=== PATIENT | female | born 1995 | race Asian ===

== ENCOUNTER 2022-02-13 11:58 | Emergency (ER) | payer OTHER ==
[2022-02-13 12:05] VITALS: BP 130/75
[2022-02-13] MEDS ORDERED: SODIUM CHLORIDE 0.9% 1,000 ML IV STA (12:14)
[2022-02-13] MEDS ORDERED: ONDANSETRON 4 MG/2 ML VIAL IVP STA (12:14)
--- NOTE | 2022-02-13 12:17 | ED Physician Documentation ---
History of Present Illness - Stated complaint Stated Complaint: N/V 13WKS PREG - Chief complaint Chief Complaint: Abd Pain - History obtained from History obtained from: Patient - History of Present Illness Timing: Yesterday Pain level max: 0 Pain level now: 0 - Additonal information Additional information: 18-year-old female states she is about 13 weeks . Started having nausea and vomiting yesterday. Has continued today. 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 She has not taken anything for the nausea or vomiting. Worse with eating and drinking, nothing makes it better. No vaginal bleeding or discharge. No abdominal pain. No pelvic pain or cramping. Review of Systems Ten Systems: 10 systems reviewed and negative Constitutional: denies: Fever, Chills Ears: denies: Ear pain Nose: denies: Rhinorrhea / runny nose, Congestion Throat: denies: Sore throat Cardiac: denies: Chest pain / pressure Respiratory: denies: Cough GI: reports: Nausea. denies: Abdominal Pain, Diarrhea, Hematemesis, Bloody / black stool : denies: Dysuria, Frequency, Hesitancy Skin: denies: Rash Musculoskeletal: denies: Neck pain, Back pain Neurologic: denies: Headache PD PAST MEDICAL HISTORY - Past Medical History Past Medical History: No - Past Surgical History Past Surgical History: No - Present Medications Home Medications: Ambulatory Orders Medication Instructions Recorded Confirmed Ondansetron Odt [Zofran] 4 mg TL Q6H PRN #10 tablet 02/13/22 - Allergies Allergies/Adverse Reactions: Allergies Allergy/AdvReac Type Severity Reaction Status Date / Time No Known Drug Allergies Allergy Verified 02/13/22 12:02 - Living Situation Living Situation: reports: With family Living Arrangement: reports: At home - Social History Does the pt smoke?: No Does the pt have substance abuse?: No - Family History Family history: reports: Non contributory PD ED PE NORMAL - Vitals Vital signs reviewed: Yes - General General: Alert and oriented X 3, No acute distress - HEENT HEENT: PERRL, Moist mucous membranes - Neck Neck: Supple, no meningeal sign - Cardiac Cardiac: RRR, Strong equal pulses - Respiratory Respiratory: No respiratory distress, Clear bilaterally - Abdomen Abdomen: Soft, Non tender, Non distended - Derm Derm: Warm and dry - Extremities Extremities: No edema - Neuro Neuro: Alert and oriented X 3 - Psych Psych: Normal mood, Normal affect Results - Vitals Vitals: Vital Signs - 24 hr 02/13/22 12:02 Temperature 36.5 C Heart Rate 99 Respiratory 16 Rate Blood Pressure 130/75 O2 Saturation 99 Oxygen O2 Source Room air - Labs Labs: Laboratory Tests 02/13/22 02/13/22 02/13/22 12:15 12:30 12:30 WBC 15.2 H RBC 4.68 Hgb 13.8 Hct 40.9 MCV 87.4 MCH 29.5 MCHC 33.7 RDW 13.2 Plt Count 259 MPV 11.6 H Neut # (Auto) 12.3 H Lymph # (Auto) 1.7 [place] # (Auto) 1.0 Eos # (Auto) 0.1 Baso # (Auto) 0.1 Absolute Nucleated RBC 0.00 Nucleated RBC % 0.0 Sodium 136 Potassium 3.7 Chloride 101 Carbon Dioxide 22 Anion Gap 13.0 BUN 6 Creatinine 0.5 Estimated GFR (MDRD) 147 Glucose 97 Calcium 9.7 Total Bilirubin 0.9 AST 51 H ALT 61 H Alkaline Phosphatase 55 Total Protein 7.6 Albumin 4.1 Globulin 3.5 Albumin/Globulin Ratio 1.2 Lipase 34 Urine Color YELLOW Urine Clarity HAZY Urine pH 7.0 Ur Specific [place] 1.015 Urine Protein NEGATIVE Urine Glucose (UA) NEGATIVE Urine Ketones 15 H Urine Occult Blood NEGATIVE Urine Nitrite NEGATIVE Urine Bilirubin NEGATIVE Urine Urobilinogen 0.2 (NORMAL) Ur Leukocyte Esterase TRACE H Urine RBC 0-5 Urine WBC 6-10 H Ur Squamous Epith Cells MANY Squamous H Urine Bacteria Moderate H Ur Microscopic Review INDICATED Urine Culture Comments NOT INDICATED PD MEDICAL DECISION MAKING - ED course Complexity details: reviewed results, re-evaluated patient, considered differential, d/w patient ED course: Patient feels much better after IV fluids and Zofran. Tolerating p.o. without difficulty. Urinalysis appears contaminated. Will prescribe Zofran for home. We will have her follow-up with her OB for further care. Patient is well-appearing, nontoxic. Afebrile. Patient counseled regarding signs and symptoms for which I believe and urgent re-evaluation would be necessary. Patient with good understanding of and agreement to plan and is comfortable going home at this time This document was made in part using voice recognition software. While efforts are made to proofread this document, sound alike and grammatical errors may occur. Departure - Departure Disposition: 01 Home, Self Care Clinical Impression: Vomiting Qualifiers: Vomiting type: unspecified Nausea presence: with nausea Qualified Code(s): R11.2 - Nausea with vomiting, unspecified Qualifiers: Weeks of gestation: 13 weeks Qualified Code(s): Z3A.13 - 13 weeks gestation of Condition: Good Instructions: ED Preg Morning Sickness Follow-Up: RENE AMEZCUA MD [Primary Care Provider] - Prescriptions: Ondansetron Odt [Zofran] 4 mg TL Q6H PRN #10 tablet PRN Reason: Nausea / Vomiting Comments: Please follow-up with your OB for further care. Your prescriptions were sent to [facility] in [place]. Drink plenty of fluids and rest. Return if you worsen
[2022-02-13 12:37] LABS: BASOPHILS # (AUTO) 0.1 10^3/uL (0.0-0.1); BASOPHILS % (AUTO) 0.4 %; EOSINOPHILS # (AUTO) 0.1 10^3/uL (0.0-0.7); EOSINOPHILS % (AUTO) 0.6 %; HCT - HEMATOCRIT 40.9 % (37.0-47.0); HGB - HEMOGLOBIN 13.8 g/dL (12.0-16.0); LYMPHOCYTES # (AUTO) 1.7 10^3/uL (1.5-3.5); MEAN CORPUSCULAR HEMOGLOBIN 29.5 pg (27.0-31.0); MEAN CORPUSCULAR HGB CONC 33.7 g/dL (32.0-36.0); MEAN CORPUSCULAR VOLUME 87.4 fL (81.0-99.0); MEAN PLATELET VOLUME 11.6 fL (7.9-10.8); MONOCYTES % (AUTO) 6.4 %; NEUTROPHILS # (AUTO) 12.3 10^3/uL (1.5-6.6); NEUTROPHILS % (AUTO) 81.1 %; PLT - PLATELET COUNT 259 10^3/uL (130-450); RED BLOOD COUNT 4.68 10^6/uL (4.20-5.40); RED CELL DISTRIBUTION WIDTH 13.2 % (12.0-15.0); WHITE BLOOD COUNT 15.2 x10^3/uL (4.8-10.8)
[2022-02-13 12:41] LABS: BILIRUBIN,URINE NEGATIVE (NEGATIVE); GLUCOSE, URINE (UA) NEGATIVE (NEGATIVE); KETONES,URINE (UA) 15 mg/dL (NEGATIVE); LEUKOCYTE ESTERASE, URINE TRACE (NEGATIVE); NITRITE,URINE NEGATIVE (NEGATIVE); OCCULT BLOOD,URINE NEGATIVE (NEGATIVE); PROTEIN,URINE NEGATIVE (NEGATIVE); UROBILINOGEN,URINE 0.2 (NORMAL) E.U./dL (NORMAL)
[2022-02-13 12:54] LABS: CLARITY,URINE HAZY (CLEAR)
[2022-02-13 12:55] LABS: BACTERIA,URINE Moderate /HPF (None Seen); RBC,URINE 0-5 /HPF (0-5); SQUAMOUS EPITHELIAL CELL,UR MANY Squamous (<= Few)
[2022-02-13 13:12] LABS: ALBUMIN 4.1 g/dL (3.2-5.5); ALBUMIN/GLOBULIN RATIO 1.2 (1.0-2.2); BILIRUBIN,TOTAL 0.9 mg/dL (0.2-1.0); CREATININE 0.5 mg/dL (0.4-1.0); TOTAL PROTEIN 7.6 g/dL (6.7-8.2)
[2022-02-13 13:18] LABS: CALCIUM 9.7 mg/dL (8.5-10.3); POTASSIUM 3.7 mmol/L (3.5-5.0)
== END 2022-02-13 13:46 | disposition home or self-care (01) ==
LOC: ED 11:58
DX: O21.0 Mild hyperemesis gravidarum (principal); Z3A.13 13 weeks gestation of pregnancy
CPT/HCPCS: 36415; 80053; 81001; 81003; 83690; 85025; 87086; 96361; 96374; 99282

== ENCOUNTER 2022-05-06 04:03 | Outpatient (CLI) | payer OTHER ==
[2022-05-06 04:37] VITALS: BP 134/60
[2022-05-06 06:00] LABS: RUPTURE OF MEMBRANES PLUS POSITIVE (NEGATIVE)
[2022-05-06] MEDS: BETAMETHASONE 30 MG/5 ML VIAL IM ONE (06:10)
[2022-05-06] MEDS: MAGNESIUM SULFATE 4 GRAM 4 GM/50 ML BAG IV ONE (06:20)
[2022-05-06] MEDS ORDERED: MAGNESIUM SULFATE IN WATER 20 GM/500 ML IV.SOLN IV ONE (06:31)
[2022-05-06] MEDS ORDERED: LACTATED RINGERS 1,000 ML ONE (06:36)
[2022-05-06] MEDS: AMPICILLIN 2 GM in SODIUM CHLORIDE 0.9% MINIBAG 100 ML IV SCH (06:54)
[2022-05-06] MEDS: MAGNESIUM SULFATE IN WATER 20 GM/500 ML IV.SOLN IV SCH (06:58)
[2022-05-06 07:12] LABS: BASOPHILS % (AUTO) 0.6 %; EOSINOPHILS % (AUTO) 0.9 %; HCT - HEMATOCRIT 37.7 % (37.0-47.0); HGB - HEMOGLOBIN 12.4 g/dL (12.0-16.0); LYMPHOCYTES % (AUTO) 7.8 %; MEAN CORPUSCULAR HEMOGLOBIN 29.7 pg (27.0-31.0); MEAN CORPUSCULAR HGB CONC 32.9 g/dL (32.0-36.0); MEAN CORPUSCULAR VOLUME 90.2 fL (81.0-99.0); MEAN PLATELET VOLUME 11.1 fL (7.9-10.8); MONOCYTES % (AUTO) 7.2 %; NEUTROPHILS % (AUTO) 79.6 %; PLT - PLATELET COUNT 255 10^3/uL (130-450); RED BLOOD COUNT 4.18 10^6/uL (4.20-5.40); RED CELL DISTRIBUTION WIDTH 12.9 % (12.0-15.0); WHITE BLOOD COUNT 25.6 x10^3/uL (4.8-10.8)
[2022-05-06 07:14] LABS: SLIDE REVIEW? Indicated
[2022-05-06 07:15] LABS: ABNORMAL LYMPHS % (MANUAL) 0 %
--- NOTE | 2022-05-06 07:15 | HISTORY & PHYSICAL EXAMINATION ---
Admit History - Visit Reason Visit Reason: Contractions, Membranes rupture - : 1 Parity: 0 Care: positive: [facility] Risk/History: positive: Premature rupture membrane Complications This : positive: None Smoking Status: Never smoker - Mother's Labs Mother's Blood Type: positive: Unknown (pending) Mother's RH: positive: Unknown GBS: positive: Other (unknown) Rubella Status: positive: Immune Meds/Allgy - Home Medications Home Medications: Ambulatory Orders Medication Instructions Recorded Confirmed Ondansetron Odt [Zofran] 4 mg TL Q6H PRN #10 tablet 02/13/22 - Allergies Allergies/Adverse Reactions: Allergies Allergy/AdvReac Type Severity Reaction Status Date / Time No Known Drug Allergies Allergy Verified 02/13/22 12:02 Review of Systems - All Other Systems All Other Systems: reports: Reviewed and negative Physical - Abdominal Exam Vital Signs: Temp Pulse Resp BP Pulse Ox 99.3 F 91 16 134/60 H 05/06/22 04:32 05/06/22 04:32 05/06/22 04:32 05/06/22 04:32 Contraction Frequency (min/apart): per patient 10-15m, not detected on toco Contraction Intensity: positive: Mild Uterine Resting Tone: positive: Soft - Monitoring Heart Rate Baseline: 140 Strip Review: positive: Category I - Presentation Presentation: positive: Transverse - Vaginal Exam Membranes: positive: Membranes ruptured (ROMPlus POS, POS pooling) Dilation (in cm): 1 Effacement (%): 50 Station: positive: -3 Cervical Position: positive: Midposition - Speculum Exam Speculum Exam Performed: positive: Yes Findings: positive: Gross leak (pooling, no active bleeding noted, no clots) Plan for Labor - Plan For Labor I expect patient to be DC'd or transferred within 96 hours.: Yes Plan for Labor: 26yo at 24.3w by LMP presented to [facility] today 05/06 with concern of bleeding and cramping. Also reports some discharge. Reports less movement. She reports she was evaluated at [facility] in [place] 4d prior on 05/02 with similar concerns. PPROM diagnosed this e valuation, likely occured on 05/02. care at [facility] and she reports her has been uncomplicated. NKDA Meds: vitamins Med: Anxiety, history of chlamydia, depression, endometriosis, GERD Surg: [place] teeth Social: Active duty [place], presents with her boyfriend/FOB, denies AROLDO Fam: Mother with HTN VSS GEN: NAD CV: Regular rate Resp: Breathing unlabored Abd: soft, nt Ext: nt Speculum: [place] pooling noted, small portion of cervix visualized and appears at least 1cm dilated SVE: /-3 Limited US: minimal fluid noted, oblique/transverse presentation 26yo at 24.3w diagnosed with PPROM today, which occured on 05/02 - [place] #1 given 05/06 0610 - Received magnesium sulfate 4g bolus, now 2g/h - Received ampicillin - Vanessa Cortes MD accepting patient. Arranged for [facility] transfer. - Obtained records from [facility] where was cared for prenatally
[2022-05-06 07:26] LABS: ALBUMIN 3.6 g/dL (3.2-5.5); ALKALINE PHOSPHATASE 110 IU/L (42-121); ALT ALANINE AMINOTRANSFERASE 11 IU/L (10-60); AST ASPARTATE AMINOTRANSFERASE 15 IU/L (10-42); BILIRUBIN,TOTAL < 0.2 mg/dL (0.2-1.0); BUN - BLOOD UREA NITROGEN 6 mg/dL (6-20); CALCIUM 8.9 mg/dL (8.5-10.3); CARBON DIOXIDE - CO2 24 mmol/L (21-32); CHLORIDE 104 mmol/L (101-111); CREATININE 0.5 mg/dL (0.4-1.0); GFR - MDRD 147 (>89); GLUCOSE 94 mg/dL (70-100); POTASSIUM 4.1 mmol/L (3.5-5.0); SODIUM 139 mmol/L (135-145); TOTAL PROTEIN 7.2 g/dL (6.7-8.2)
[2022-05-06 07:40] LABS: BAND NEUTROPHILS % (MANUAL) 6 %; EOSINOPHILS # (MANUAL) 0.5 10^3/uL (0-0.7); LYMPHOCYTES # (MANUAL) 2.3 10^3/uL (1.5-3.5); LYMPHOCYTES % (MANUAL) 7 %; MONOCYTES # (MANUAL) 2.3 10^3/uL (0.0-1.0); NEUTROPHILS # (MANUAL) 20.5 10^3/uL (1.5-6.6); REACTIVE LYMPHS % (MANUAL) 2 %
[2022-05-06 07:41] LABS: DIFFERENTIAL COMMENT MANUAL DIFFERENTIAL
== END 2022-05-06 07:50 | disposition short-term general hospital (02) ==
LOC: WFO 04:03 → FBP 04:03 → WFO 04:07 → FBP 04:07 → WFO 07:50
PROVIDERS: ATTEND Obstetrics & Gynecology
DX: O42.912 Preterm premature rupture of membranes, unspecified as to length of time between rupture and onset of labor, second trimester (principal); Z3A.24 24 weeks gestation of pregnancy
CPT/HCPCS: 36415; 80053; 82731; 84112; 85025; 86850; 86900; 86901; 87635; 87797; 96372; 96374; 96376; 99215; J7120; J3475

== ENCOUNTER 2022-12-16 09:08 | Emergency (ER) | payer OTHER ==
[2022-12-16] MEDS ORDERED: ACETAMINOPHEN 325 MG TABLET PO STA (09:46)
[2022-12-16 10:03] LABS: RAPID STREP SCREEN Negative (Negative)
--- NOTE | 2022-12-16 10:22 | XRAY Report ---
PROCEDURE: Chest 1 View X-Ray INDICATIONS: cough/SOA TECHNIQUE: One view of the chest was acquired. COMPARISON: None. FINDINGS: Surgical changes and devices: None. Lungs and pleura: No pleural effusions or pneumothorax. Minimal left basilar atelectasis. Mediastinum: Mediastinal contours appear normal. Heart size is normal. Bones and chest wall: No suspicious bony lesions. Overlying soft tissues appear unremarkable. IMPRESSION: Minimal left basilar atelectasis. Reviewed by: Henry Esparza MD on 12/16/2022 10:21 AM [facility] Approved by: Henry Esparza MD on 12/16/2022 10:21 AM [facility] Station ID: [id number]
--- NOTE | 2022-12-16 10:28 | ED Physician Documentation ---
PD HPI URI - Stated complaint Stated Complaint: BODY PX/CONGESTION/FEVER - Chief complaint Chief Complaint: Fever - History obtained from History obtained from: Patient - Additional information Additional information: Patient is a 27-year-old female with no significant past medical history presenting for evaluation of 4 days of fever, productive cough of yellow sputum, nasal congestion, headache, body aches. She denies chest pain or difficulty breathing. She denies hemoptysis. She took a home COVID test which was negative last night. Her younger child who goes to daycare is also been ill with similar symptoms recently.She has been using antipyretics with the last dose being last night. She is tolerating p.o. with no vomiting or diarrhea and no abdominal pain or dysuria. Review of Systems Constitutional: reports: Fever Nose: reports: Congestion Throat: reports: Sore throat Respiratory: reports: Cough GI: denies: Abdominal Pain, Vomiting Musculoskeletal: denies: Back pain PD PAST MEDICAL HISTORY - Past Surgical History Past Surgical History: No - Present Medications Home Medications: Ambulatory Orders Medication Instructions Recorded Confirmed No Known Home Medications 12/16/22 12/16/22 - Allergies Allergies/Adverse Reactions: Allergies Allergy/AdvReac Type Severity Reaction Status Date / Time No Known Drug Allergies Allergy Verified 12/16/22 09:24 - Social History Does the pt smoke?: No Smoking Status: Never smoker Does the pt have substance abuse?: No PD ED PE NORMAL - General General: Alert and oriented X 3, No acute distress, Well developed/nourished - HEENT HEENT: Atraumatic, Moist mucous membranes, Pharynx benign (No oral swelling, ex udate or erythema) - Neck Neck: Supple, no meningeal sign - Cardiac Cardiac: RRR - Respiratory Respiratory: No respiratory distress, Clear bilaterally - Abdomen Abdomen: Soft, Non tender, Non distended - Derm Derm: Warm and dry - Neuro Neuro: Normal speech Results - Vitals Vitals: Vital Signs - 24 hr 12/16/22 12/16/22 09:24 10:34 Temperature 36.4 C L Heart Rate 120 H 89 Respiratory 18 16 Rate Blood Pressure 155/83 H 110/79 O2 Saturation 99 99 Oxygen O2 Source Room air - Labs Labs: Laboratory Tests 12/16/22 12/16/22 09:30 09:30 Nasal Adenovirus (PCR) NOT DETECTED Nasal B. parapertussis DNA (PCR) NOT DETECTED Nasal Coronavir 229E PCR NOT DETECTED Nasal Coronavir HKU1 PCR NOT DETECTED Nasal Coronavir NL63 PCR NOT DETECTED Nasal Coronavir OC43 PCR NOT DETECTED Nasal Enterovir/Rhinovir PCR DETECTED A Nasal Influenza B PCR NOT DETECTED Nasal Influenza A PCR NOT DETECTED Nasal Parainfluen 1 PCR NOT DETECTED Nasal Parainfluen 2 PCR NOT DETECTED Nasal Parainfluen 3 PCR NOT DETECTED Nasal Parainfluen 4 PCR NOT DETECTED Nasal RSV (PCR) NOT DETECTED Nasal B.pertussis DNA PCR NOT DETECTED Nasal C.pneumoniae (PCR) NOT DETECTED [place] Human Metapneumo PCR NOT DETECTED Nasal M.pneumoniae (PCR) NOT DETECTED Nasal SARS-CoV-2 (PCR) NOT DETECTED Group A Strep Rapid Negative PD Medical Decision Making - ED course Complexity details: reviewed results, re-evaluated patient, d/w patient ED course: Patient with URI symptoms for 4 days including fever and productive cough. She is slightly tachycardic from initial triage vitals but that was improved when I evaluated her in the room. Her lung sounds are clear. She has no chest pain or difficulty breathing. She has no signs of peritonsillar abscess. A strep test is negative and a respiratory panel is pending. Patient is tolerating p.o. I did review her chest x-ray and see no evidence of pneumonia. Patient is counseled that her symptoms are likely viral in nature and to continue with supportive care. She is counseled on concerning symptoms to return for. Departure - Departure Disposition: 01 Home, Self Care Clinical Impression: URI with cough and congestion Condition: Stable Instructions: ED URI Viral Comments: Your respiratory panel is pending. This will check for COVID, influenza, RSV and a number of other common cold viruses. We will notify you if it is positive for COVID. Otherwise you can check the patient portal for your results. You should quarantine from others until you know your COVID result. Please continue with acetaminophen or ibuprofen as needed for fevers and body aches, plenty of fluids/hydration and rest. Return to the ER with any worsening symptoms such as difficulty breathing or vomiting. Your strep test is negative. We will send this for culture. We will notify you if it is abnormal and discuss antibiotics with you at that time.Your chest x-ray is also clear and does not show signs of pneumonia. Forms: Activity restrictions Discharge Date/Time: 12/16/22 10:35
[2022-12-16 10:35] VITALS: BP 110/79
[2022-12-16 10:41] LABS: B. PARAPERTUSSIS- RESP PCR PAN NOT DETECTED; B. PERTUSSIS- RESP PCR PANEL NOT DETECTED; C. PNEUMONIAE- RESP PCR PANEL NOT DETECTED; CORONAVIRUS 229E-RESP PCR NOT DETECTED; CORONAVIRUS HKU1-RESP PCR NOT DETECTED; CORONAVIRUS NL63-RESP PCR NOT DETECTED; CORONAVIRUS OC43-RESP PCR NOT DETECTED; HUMAN METAPNEUMOVIRUS NOT DETECTED; INFLUENZA A- RESP PCR PANEL NOT DETECTED; INFLUENZA B - RESP PCR PANEL NOT DETECTED; M. PNEUMONIAE- RESP PCR PANEL NOT DETECTED; PARAINFLUENZA VIRUS 1 NOT DETECTED; PARAINFLUENZA VIRUS 2 NOT DETECTED; PARAINFLUENZA VIRUS 3 NOT DETECTED; PARAINFLUENZA VIRUS 4 NOT DETECTED; RHINOVIRUS/ENTEROVIRUS DETECTED; RSV- RESP PCR PANEL NOT DETECTED; SARS-CoV-2 -RESP PCR PANEL NOT DETECTED
== END 2022-12-16 10:35 | disposition home or self-care (01) ==
LOC: ED 09:08
DX: J06.9 Acute upper respiratory infection, unspecified (principal); R05.9 Cough, unspecified; R09.81 Nasal congestion; Z20.822 Contact with and (suspected) exposure to COVID-19
CPT/HCPCS: 71045; 87070; 87430; 87633; 99283; 99284; A9270

== ENCOUNTER 2023-03-29 07:50 | Day surgery (SDC) | payer OTHER ==
[2023-03-29 08:03] LABS: HCG UR QUAL NEGATIVE
[2023-03-29] MEDS ORDERED: LACTATED RINGERS 1,000 ML IV ONE (08:22)
[2023-03-29] MEDS ORDERED: SILVER NITRATE APPLICATOR TOP ONE (08:37)
--- NOTE | 2023-03-29 09:02 | ANESTHESIA ---
Pre-Anesthesia VS, & Labs - Diagnosis abnormal uterine bleeding endometrial polyp - Procedure hysterscopy, D&C Vital Signs: Temp Pulse Resp BP Pulse Ox O2 Flow Rate 36.3 C L 71 16 120/69 99 03/29/23 08:05 03/29/23 08:05 03/29/23 08:05 03/29/23 08:05 03/29/23 08:05 Height: 5 ft 3 in Weight (kg): 71.8 kg Body Mass Index: 28.0 BMI Classification: Overweight - NPO >8 hours - Is Patient ?: No Home Medications and Allergies Home Medications: Ambulatory Orders Clobetasol 0.05% Oint [Temovate 0.05% Oint] 1 applic TOP PRN PRN 03/25/23 Halobetasol Propionate 1 applic TP PRN PRN 03/25/23 Omeprazole 40 mg PO DAILY 03/25/23 Clobetasol 0.05% Oint [Temovate 0.05% Oint] 1 applic TOP PRN PRN 03/25/23 Halobetasol Propionate 1 applic TP PRN PRN 03/25/23 Omeprazole 40 mg PO DAILY 03/25/23 Allergies/Adverse Reactions: Allergies Allergy/AdvReac Type Severity Reaction Status Date / Time No Known Drug Allergies Allergy Verified 12/16/22 09:24 Anes History & Medical History - Anesthetic History Anesthesia Complications: reports: No previous complications - Medical History Cardiovascular: reports: None Pulmonary: reports: None Gastrointestinal: reports: GERD Urinary: reports: None Neuro: reports: None Musculoskeletal: reports: None Endocrine/Autoimmune: reports: None Skin: reports: Eczema Smoking Status: Never smoker Psychosocial: reports: No issues indicated History of Cancer?: No - Surgical History Gynecologic: reports: section Exam General: Alert, Oriented x3, Cooperative, No acute distress Dental: WNL Mouth Openin Fingerbreadth Neck Mobility: Normal Mallampati classification: II Thyromental Distance: 4-6 cm Mental/Cognitive Status: Alert/Oriented X3, Normal for patient Plan Anesthesia Type: General Consent for Procedure(s) Verified and Reviewed: Yes Code Status: Attempt Resuscitation ASA classification: 2-Mild systemic disease Is this case an emergency?: No
[2023-03-29] MEDS ORDERED: PROPOFOL 200 MG/20 ML VIAL IVP ONE (09:12)
[2023-03-29] MEDS ORDERED: fentaNYL 100 MCG/2 ML VIAL ONE (09:13)
[2023-03-29] MEDS ORDERED: MIDAZOLAM 2 MG/2 ML VIAL ONE (09:13)
[2023-03-29] MEDS ORDERED: DEXAMETHASONE 4 MG/ML VIAL ONE (09:39)
[2023-03-29] MEDS ORDERED: ONDANSETRON 4 MG/2 ML VIAL ONE (09:39)
[2023-03-29] MEDS ORDERED: KETOROLAC 30 MG/ML VIAL ONE (09:39)
[2023-03-29] MEDS ORDERED: LACTATED RINGERS 100 ML IV ONE (10:12)
--- NOTE | 2023-03-29 10:19 | OPERATIVE REPORT ---
Operative Report - General Procedure Date: 03/29/23 Planned Procedure: Dilation, curettage, hysteroscopy Pre-Op Diagnosis: Heavy menstrual bleeding, endometrial polyp Procedure Performed: Dilation, curettage, hysteroscopy Post Op Diagnosis: Normal endometrium - Procedure Note Primary Surgeon: Mariah Devi DO Secondary Surgeon: Vandana Santiago NP and Kwame Vance MS3 present for learning/education Anesthesia Provider: Kate Alejandre CRNA Anesthesia Technique: General LMA Pathology: Endometrial curettings Estimated Blood Loss (mL): 20 Urine Output (mL): 150 Indications: Heavy menstrual bleeding, endometrial polyp Findings: Normal endometrium, no polyp identified Complications: None - Other Other Information/Narrative: Patient transported to OR where general LMA anesthesia obtained. Placed in dorsal lithotomy position with mireille type stirrups. Prepped and draped in sterile fashion. Bladder emptied. Speculum placed. Posterior lip of cervix grasped with tenaculum. Dilated to accomodate Myosure hysteroscope. Hysteroscope introduced. [place] visualized. No polyp noted. Hysteroscope removed. Curette introduced and adequate endometrial curettings obtained. Tenaculum removed. Hemostasis. Counts correct x2. Transferred to PACU in stable condition.
[2023-03-29] MEDS ORDERED: traMADol 50 MG TABLET PO PRN (10:20)
[2023-03-29] MEDS ORDERED: fentaNYL 100 MCG/2 ML VIAL IVP PRN (10:28)
[2023-03-29] MEDS ORDERED: ATROPINE ABBOJECT 1 MG/10 ML SYRINGE IVP PRN (10:28)
[2023-03-29] MEDS ORDERED: HYDROmorphone 0.5 MG/0.5 ML SYRINGE IVP PRN (10:28)
[2023-03-29] MEDS ORDERED: MORPHINE 2 MG/ML CARPUJECT IVP PRN (10:28)
[2023-03-29] MEDS ORDERED: ONDANSETRON 4 MG/2 ML VIAL IVP PRN (10:28)
[2023-03-29] MEDS ORDERED: NALOXONE 0.4 MG/ML VIAL IVP PRN (10:28)
[2023-03-29] MEDS ORDERED: LACTATED RINGERS 500 ML IV ONE (10:45)
[2023-03-29 11:00] VITALS: BP 113/75
[2023-03-29] MEDS ORDERED: LACTATED RINGERS 1,000 ML IV SCH (11:00)
--- NOTE | 2023-03-29 16:10 | ANESTHESIA POST OP EVALUATION ---
Anesthesia Post Eval - Post Anesthesia Eval Vitals: Last Vital Signs Temp 36.8 C 03/29/23 10:58 Pulse 74 03/29/23 10:58 Resp 16 03/29/23 10:58 BP 113/75 03/29/23 10:58 Pulse Ox 99 03/29/23 10:58 O2 Flow Rate CV Function Including HR & BP: Stable Pain Control: Satisfactory Nausea & Vomiting: Negative Mental Status: Baseline Respiratory Status: Airway Patent Hydration Status: Satisfactory Anesthesia Complications: None
== END 2023-03-29 07:51 | disposition home or self-care (01) ==
LOC: SDS 07:50
PROVIDERS: ATTEND Obstetrics & Gynecology
PROC: 0UDB7ZZ Extraction of Endometrium, Via Natural or Artificial Opening (ICD-10-PCS; principal; 2023-03-29 09:00)
DX: N93.9 Abnormal uterine and vaginal bleeding, unspecified (principal)
CPT/HCPCS: 58558; 81025; J7120

== ENCOUNTER 2023-09-16 10:41 | Outpatient (CLI) | payer OTHER ==
--- NOTE | 2023-09-16 11:49 | Sleep Patient Instructions ---
Sleep Center Visit Summary - Patient Visit Information Reason for Visit: Initial consult for evaluation of sleep disordered breathing and other sleep issues. - Patient Instructions Instructions Attached: Sleep Study Home Monitor Additional Instructions: You will be completing a sleep study, either an in-lab polysomnography (PSG) or home sleep study (HST). You will follow-up in the sleep care office after the sleep study is completed to hear the results and talk about therapy, if needed. You will be called by our office staff to schedule this appointment, but you may contact us with any questions. - Clinic Information Contact: [facility] [address] [place] [address] [email or web address] T: [phone]
--- NOTE | 2023-09-16 11:52 | SLEEP CARE CONSULTATION ---
Information from patient questionnaire entered by Lana Champagne. I have reviewed and concur with the information entered by Lana Champagne. This document represents the service I personally performed and the decisions made by me, Yamilex Torres ARNP. History of Present Illness Service Date and Time: 09/16/2023 1041 Reason for Visit: New patient Chief Complaint: reports: Insomnia, Snoring, Excessive daytime sleepiness, Fatigue, Frequent awakenings at night Date of Onset: For a couple years, since 2019 Usual bedtime: Between 11-1 PM, depends on what time I get off from work Time it takes to fall asleep: 45 mins - an hour Snores at night: Yes Observed to quit breathing while asleep: No Sleeps alone due to snoring: No Number of times waking at night: 2-3 times Reasons for waking at night: reports: Snoring, Gasping for air, Bathroom. denies: Other (Unknown reason) Toss, Turn, or Twitch while sleeping: Yes Recalls having dreams: Yes Usually gets out of bed at: Between 7 AM - 9 AM (depends what time I get off from work) Feels refreshed in the morning: No Morning headache: Yes (1-2 times a week; last couple hours sometimes become migraines) Sleepy or fatigued during the day: Yes Ever fallen asleep while driving: No (some drowsy driving; no accidents) Takes day naps: Yes (Sometimes; 1-2 times a week) Dreams during day naps: No Prior sleep studies: No Additional HPI information: I had the pleasure of seeing DAREN LIN today regarding the possibility of her having a sleep disorder. Her current complaints are excessive daytime sleepiness, fatigue, frequent night awakenings, insomnia and snoring. She says she has trouble falling asleep and if she wakes up she has a hard time going back to sleep. She is tired during the day. 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 She works from 4 PM to 11PM-1AM, sometimes she has worked til 3 AM. She says it takes 45 minutes to 1 hour to fall asleep. She has trazodone to help her go to sleep but she feels like it makes her tired but not enough to fall asleep. She has been told she snores but no observed pauses in breathing. She has had times that she has woke up feeling a need for air, gasping. 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 Patient is single and lives in [place]. Have you smoked in the past 12 months: No Alcohol use: Yes Alcohol amount and frequency: 1 - 2 drinks, once every couple of months, occasionally Caffeine use: Yes Caffeine amount and frequency: 1 drink once a day in the morning Family History Family history of sleep disordered breathing: No Allergies and Home Medications Known drug allergies: No Drug allergies reviewed: Yes Home medication list reviewed: Yes Allergy and home medication list: Allergies No Known Drug Allergies Allergy (Verified 09/15/23 13:58) Medications: Omeprazole Sumatriptan Trazodone Clobetasol, topical Clindamycin, topical Halobetasol topical Flonase Loratidine Xulane: control patch Review of Systems Weight gain over past 5 years: 15 Cardiovascular: denies: high blood pressure Gastrointestinal: reports: heartburn, nausea Neurological: reports: headaches Psychiatric: reports: anxiety, depression Ear/Nose/Throat: reports: nasal congestion. denies: tonsillectomy Endocrine: reports: sluggishness (/tired) Immunologic: reports: rash, itching Physical Exam Vital signs obtained and entered by: Yamilex Delaney NP Blood Pressure: 141/84 Cuff size: wrist (right) Heart Rate: 94 O2 Saturation: 99 Height: 5 ft 3 in Weight: 158 lb Body Mass Index: 28.0 BMI Classification: Overweight Neck circumference: 14 (inches) Mouth and throat: narrow oropharynx Soft palate: long Hard palate: normal Uvula: normal Uvula visualization: 25% Mallampati Class III Tongue: enlarged in size with teeth estrada on lateral edges Tonsils: small Neck: normal w/o lymphadenopathy or thyromegaly Heart: regular rate and rhythm Lungs: clear bilaterally Impression and Plan 1. Suspected Obstructive Sleep Apnea-Hypopnea Syndrome, as suggested by a history of irregular snoring, gasping or choking in sleep, morning headache, frequent awakening during the night, unrefreshed sleep, cognitive impairment, and excessive daytime sleepiness. Narrow oropharynx and obesity are common predisposing factors for obstructive sleep apnea-hypopnea syndrome. I recommend proceeding to polysomnography to confirm the diagnosis and to assess severity. If the patient has significant sleep disordered breathing, a manual CPAP titr ation study will also be performed to find the optimal treatment pressure. I informed the patient of what the sleep studies involve and after some discussion, obtained agreement to proceed. The pathophysiology of obstructive sleep apnea-hypopnea syndrome was discussed with the patient and health risks of cardiovascular and cerebrovascular disease if not treated. Risks of drowsy driving discussed in detail and patient advised to avoid long distance driving and to puller through at the first sign of drowsiness. Patient agreed to plan. * Schedule polysomnography. * Avoid long distance driving or driving when feeling sleepy. * Avoid alcohol, sedative and muscle relaxant around bedtime. * Attempt to lose weight. * Review instructions provided by trained office staff on how to prepare for the sleep study. * Return for follow-up after sleep study completed. Counseling Topics: Weight loss health impact Visit Type: In Office Patient Location: Office Location of Provider: Office Time Spent with Patient (minutes): 31 Provider Statement: I spent 100% of the Face to Face Visit with the patient with greater than 50% spent counseling the patient and coordination of care.
[2023-09-16 12:00] VITALS: BP 141/84; O2SAT 99
== END 2023-09-16 10:42 | disposition home or self-care (01) ==
LOC: SC 10:41
PROVIDERS: ATTEND Nurse Practitioner Family
DX: R06.83 Snoring (principal); G47.8 Other sleep disorders; R51.9 Headache, unspecified; G47.10 Hypersomnia, unspecified; R53.83 Other fatigue; F32.A Depression, unspecified; E66.3 Overweight; Z68.28 Body mass index [BMI] 28.0-28.9, adult
CPT/HCPCS: 99203; 99212

== ENCOUNTER 2023-10-11 12:19 | Outpatient (CLI) | payer OTHER | END 2023-10-11 12:20 | disposition home or self-care (01) | LOC: SC 12:19 | PROVIDERS: ATTEND Nurse Practitioner Family | DX: R00.0 Tachycardia, unspecified (principal) | CPT/HCPCS: 95806 ==

== ENCOUNTER 2023-10-25 11:22 | Outpatient (CLI) | payer OTHER ==
--- NOTE | 2023-10-25 11:53 | Sleep Patient Instructions ---
Sleep Center Visit Summary - Patient Visit Information Reason for Visit: Sleep study followup - Patient Instructions Instructions Attached: Snoring Tips Prevent, Insomnia Tx Additional Instructions: Your sleep study today was negative for significant sleep disordered breathing. You were found to have episodes of snoring. There are different ways to control snoring including weight loss, oral devices made by a dentist or surgical options through ENT specialist. You should not use oral devices that do not fit properly because they can affect your bite. You should also check insurance coverage of oral devices for snoring because they may not be cover well. You may obtain a referral to an ENT specialist through your primary provider. Follow-up as needed. - Clinic Information Contact: [facility] [address] [place] [address] [email or web address] T: [phone]
--- NOTE | 2023-10-25 11:56 | SLEEP CARE CONSULTATION ---
Information from patient questionnaire entered by Radha French. I have reviewed and concur with the information entered by Radha French. This document represents the service I personally performed and the decisions made by , Yamilex Torres ARNP. History of Present Illness Service Date and Time: 10/25/2023 112 Initial [place] Sleepiness Scale score: 16 (in 2022) Current [place] Sleepiness Scale score: 15 (12/26/22) Additional HPI information: DAREN LIN returns for follow up and results of the recently performed home sleep study. The patient was informed of the following findings: No significant sleep disordered breathing with an average AHI of 1.0 and rocío oxygen saturation of 93%. She was noted to have tachycardia with the maximum recorded heart rate of 129. I explained the pathophysiology behind obstructive sleep apnea. Patient does not have sleep apnea and was advised how weight gain could increase the risk of developing sleep apnea in the future. I strongly encouraged the patient to lose weight. Patient has moderate snoring. Snoring can be reduced by weight loss. Weight loss is best achieved with diet consult. Patient instructed to contact PCP for referral. Snoring can also be treated with an oral appliance from a dentist. Advised to check insurance coverage. In addition, an ENT evaluation can be do to see if other treatment is indicated. Patient counseled not drink alcohol less than 4 hours before bedtime as it can increase snoring and apnea. Patient was cautioned about risks of drowsy driving until sleepiness symptoms resolve. Sleep Study - Results Type of Sleep Study: Home sleep study (COMPLETED 10/11/23) Prior sleep studies: No Polysomnography/Home Sleep Study results: Physician Impression: The quality of the study is good. The length of the study is adequate (> 240 minutes). Please also see the tabulated and graphic data. 1. No significant sleep disordered breathing, with an AHI of 1.0/hr and rocío SaO2 of 93%. During the study, the patient had 6 apneas (6 obstructive, 0 central, 0 mixed) and 3 hypopneas. The longest episode lasted 136.0 seconds. The patient slept adequately in supine position (supine AHI was 0.9 and non-supine, 1.47). 3. Tachycardia, with maximum recorded heart rate of 129 beats per minute. Allergies and Home Medications Known drug allergies: No Drug allergies reviewed: Yes Home medication list reviewed: Yes (Doxepin, Lexapro are new for anxiety and sleep problems) Allergy and home medication list: Allergies No Known Drug Allergies Allergy (Verified 10/24/23 09:46) Home Medications Medication Instructions Recorded Confirmed Last Taken Type Clobetasol 0.05% Oint [Temovate 1 applic TOP PRN PRN 03/25/23 10/25/23 Unknown History 0.05% Oint] Halobetasol Propionate 1 applic TP PRN PRN 03/25/23 10/25/23 Unknown History Omeprazole 40 mg PO DAILY 03/25/23 10/25/23 Unknown History Doxepin [SINEquan] See Rx Instructions .ROUTE .COMPLEX 10/25/23 10/25/23 Unknown History Escitalopram Oxalate [Lexapro] See Rx Instructions .ROUTE .COMPLEX 10/25/23 10/25/23 Unknown History Review of Systems Review of systems same as previous: Yes (NO CHANGE) Physical Exam Vital signs obtained and entered by: RADHA Ellis MA Blood Pressure: 138/89 (LEFT ARM) Cuff size: regular Heart Rate: 85 O2 Saturation: 100 Height: 5 ft 3 in Weight: 159 lb 12.8 oz Body Mass Index: 28.3 BMI Classification: Overweight Impression and Plan 1. Snoring but no significant sleep disordered breathing. Patient advised that often weight loss will reduce snoring as well as apnea risk. An oral appliance can also be used for snoring. This would require a dental consultation. Patient cautioned not to use other online appliances as can cause bite issues. Patient is advised to check if insurance will cover. An ENT consult can also be helpful to determine if any other treatment is an option. 2. Tachycardia. She had an elevated heart rate with maximum 129 beats per minute recorded during the night of the sleep study. I advised her to followup with her primary doctor for further evaluation of this finding. She voiced understanding. 3. Overweight, unspecified. Currently patients BMI is 28.3. Obesity increases the risk of apnea, CPAP pressure requirements and overall health risks especially cardiovascular and diabetes. Thus patient is advised to lose weight. * Follow up with PCP for tachycardia * Attempt to lose weight * Avoid alcohol consumption near bedtime * The patient is cautioned about driving until sleepiness is completely resolved. * Return as needed for follow up. Counseling Topics: Weight loss health impact Follow up with Sleep Care in: as needed Follow up with: PCP Follow up recommended for: Other (tachycardia) Visit Type: In Office Time Spent with Patient (minutes): 14 Provider Statement: I spent 100% of the Face to Face Visit with the patient with greater than 50% spent counseling the patient and coordination of care.
[2023-10-25 12:04] VITALS: BP 138/89; O2SAT 100
== END 2023-10-25 11:23 | disposition home or self-care (01) ==
LOC: SC 11:22
PROVIDERS: ATTEND Nurse Practitioner Family
DX: R06.83 Snoring (principal); R00.0 Tachycardia, unspecified; E66.3 Overweight; Z68.28 Body mass index [BMI] 28.0-28.9, adult
CPT/HCPCS: 99212

== ENCOUNTER 2024-03-09 10:44 | Outpatient (CLI) | payer OTHER ==
--- NOTE | 2024-03-12 07:34 | Ultrasound Report ---
LIMITED ULTRASOUND OF LEFT BREAST: 03/09/2024 CLINICAL: Patient returns today for 6 mo FU from outside study. No prior exams were available for comparison. Color flow ultrasound of the left breast 3 o'clock, 8 o'clock, and 10 o'clock regions was performed. Blevins scale images of the real-time examination were reviewed. There is a stable 0.9 cm x 0.7 cm x 1.1 cm oval mass with a circumscribed margin in the left breast a t 3 o'clock anterior depth 3 cm from the nipple. There also is a stable 1.1 cm x 0.7 cm x 0.4 cm oval mass with a circumscribed margin in the left daniella ast at 10 o'clock middle depth 7 cm from the nipple. Additionally, there is a stable 0.4 cm x 0.4 cm x 0.2 cm oval mass with a circumscribed margin in the left breast at 8 o'clock middle depth 7 cm from the nipple. IMPRESSION: PROBABLY BENIGN The stable 0.9 cm x 0.7 cm x 1.1 cm oval mass in the left breast at 3 o'clock anterior depth is proba lew benign. The stable 1.1 cm x 0.7 cm x 0.4 cm oval mass in the left breast at 10 o'clock middle depth is probab ly benign. The stable 0.4 cm x 0.4 cm x 0.2 cm oval mass in the left breast at 8 o'clock middle depth is probabl y benign. A follow-up ultrasound in 6 months is recommended to demonstrate stability. These may be fibroadeno mas and are stable from outside prior US. This exam was interpreted at Station ID: [id number]. Electronically Signed By: Azar Vasquez M.D. lc/:03/09/2024 12:14:57 Ultrasound BI-RADS: 3 Probably benign BI-RADS CATEGORY: (3) - 3 Ultrasound [id number] 6 month follow-up LATERALITY: (B)
== END 2024-03-09 10:45 | disposition home or self-care (01) ==
LOC: DI 10:44
DX: N63.25 Unspecified lump in the left breast, overlapping quadrants (principal); N63.22 Unspecified lump in the left breast, upper inner quadrant; N63.24 Unspecified lump in the left breast, lower inner quadrant